=== PATIENT | female | born 1990 | race American Indian/Alaskan Native ===

== ENCOUNTER 2018-02-13 06:18 | Inpatient (IN) | payer OTHER ==
[2018-02-13] MEDS ORDERED: NACL 0.9% 1000 ML 1,000 ML IV ONE ×2 (06:30→07:59)
[2018-02-13 06:55] LABS: Basophils # (Auto) 0.1 K/mm3 (0.0-0.1); Basophils % (Auto) 1.3 % (0.0-1.8); Eosinophils % (Auto) 0.2 % (0.0-4.3); Hematocrit 38.4 % (30.3-42.9); Hemoglobin 13.3 gm/dl (10.1-14.3); Lymphocytes % (Auto) 32.5 % (13.4-35.0); Mean Corpuscular HGB Conc 35 % (30-34); Mean Corpuscular Hemoglobin 32 pg (28-32); Mean Corpuscular Volume 92 fl (79-97); Monocytes # (Auto) 0.7 K/mm3 (0.0-0.8); Platelet Count 315 K/mm3 (140-440); Red Blood Count 4.16 M/mm3 (3.65-5.03); Red Cell Distribution Width 12.5 % (13.2-15.2)
[2018-02-13 07:07] LABS: Alanine Aminotransferase 86 units/L (7-56); Albumin 4.3 g/dL (3.9-5); BUN/Creatinine Ratio 24; Blood Urea Nitrogen 19 mg/dL (7-17); Calcium 9.1 mg/dL (8.4-10.2); Hemolysis Index 19; Lipase 31 units/L (13-60)
[2018-02-13] MEDS ORDERED: ZOFRAN IV ONE (07:59)
--- NOTE | 2018-02-13 07:59 | Emergency Department Report ---
ED Abdominal Pain HPI - General Chief Complaint: Nausea/Vomiting/Diarrhea Stated Complaint: N/V; SEEN TODAY FOR SAME Time Seen by Provider: 02/13/18 07:55 Source: patient Mode of arrival: Ambulatory Limitations: No Limitations - History of Present Illness Initial Comments: Patient is 27-year-old female presents emergency room for nausea vomiting, abdominal pain, and chest pain. Patient has been to the ER 3 times with the same complaints over the last few days. Patient states her symptoms have not improved. Patient states that she is taking the medications as directed and still unable to hold any foods or liquids down. Patient states she's had any by mouth intake for at least 4 days. Patient states her chest pain is a 7 out of 10 and is better with rest and worse with movement and vomiting. Patient states she has upper abdominal pain that is a 6 out of 10. Patient states her abdominal pain is better with rest and worse with vomiting and movement. Patient denies fever and chills. Patient denies diarrhea. MD Complaint: abdominal pain -: Sudden Location: LUQ, RUQ, epigastric Radiation: none Migration to: no migration Severity scale (0 -10): 6 Quality: stabbing Consistency: constant Improves With: rest Worsens With: vomiting, movement Associated Symptoms: nausea, vomiting. denies: diarrhea, fever, chills, constipation, dysuria, hematemesis, hematochezia, melena, hematuria, anorexia, syncope - Related Data LMP (females 10-50): this week Previous Rx's Medication Instructions Recorded Last Taken Type Dicyclomine [Bentyl] 40 mg PO QID 3 Days #12 tablet 02/09/18 Unknown Rx Famotidine [Pepcid] 40 mg PO QDAY 10 Days #10 tablet 02/09/18 Unknown Rx Ondansetron [Zofran ODT TAB] 8 mg PO Q8HR PRN #12 tab.rapdis 02/09/18 Unknown Rx Promethazine [Phenergan] 25 mg NC Q6HR PRN #7 supp.rect 02/11/18 Unknown Rx Allergies Allergy/AdvReac Type Severity Reaction Status Date / Time No Known Allergies Allergy Verified 02/11/18 12:22 ED Review of Systems ROS: Stated complaint: N/V; SEEN TODAY FOR SAME Other details as noted in HPI Constitutional: denies: chills, fever Eyes: denies: eye pain, eye discharge, vision change ENT: denies: ear pain, throat pain Respiratory: denies: cough, shortness of breath, wheezing Cardiovascular: chest pain. denies: palpitations Endocrine: no symptoms reported Gastrointestinal: abdominal pain, nausea, vomiting. denies: diarrhea Genitourinary: denies: urgency, dysuria, discharge Musculoskeletal: denies: back pain, joint swelling, arthralgia Skin: denies: rash, lesions Neurological: denies: headache, weakness, paresthesias Psychiatric: denies: anxiety, depression Hematological/Lymphatic: denies: easy bleeding, easy bruising ED Past Medical Hx - Past Medical History Previous Medical History?: No - Surgical History Past Surgical History?: No - Family History Family history: no significant - Social History Smoking Status: Never Smoker Substance Use Type: Marijuana - Medications Home Medications: Home Medications Medication Instructions Recorded Confirmed Last Taken Type Dicyclomine [Bentyl] 40 mg PO QID 3 Days #12 tablet 02/09/18 02/13/18 Unknown Rx Famotidine [Pepcid] 40 mg PO QDAY 10 Days #10 tablet 02/09/18 02/13/18 Unknown Rx Ondansetron [Zofran ODT TAB] 8 mg PO Q8HR PRN #12 tab.rapdis 02/09/18 02/13/18 Unknown Rx Promethazine [Phenergan] 25 mg NC Q6HR PRN #7 supp.rect 02/11/18 02/13/18 Unknown Rx ED Physical Exam - General Limitations: No Limitations General appearance: alert, in no apparent distress - Head Head exam: Present: atraumatic, normocephalic - Eye Eye exam: Present: normal appearance - ENT ENT exam: Present: mucous membranes dry - Neck Neck exam: Present: normal inspection - Respiratory Respiratory exam: Present: normal lung sounds bilaterally. Absent: respiratory distress - Cardiovascular Cardiovascular Exam: Present: regular rate, normal rhythm. Absent: systolic murmur, diastolic murmur, rubs, gallop - GI/Abdominal GI/Abdominal exam: Present: soft, tenderness (epigastric and right upper quadrant tenderness to palpation), normal bowel sounds - Extremities Exam Extremities exam: Present: normal inspection - Back Exam Back exam: Present: normal inspection - Neurological Exam Neurological exam: Present: alert, oriented X3 - Psychiatric Psychiatric exam: Present: normal affect, normal mood - Skin Skin exam: Present: warm, dry, intact, normal color. Absent: rash ED Course Vital Signs 02/13/18 02/13/18 06:22 10:19 Temperature 98.1 F Pulse Rate 60 Respiratory 16 20 Rate Blood Pressure 118/76 O2 Sat by Pulse 100 100 Oximetry - Reevaluation(s) Reevaluation #1: Discussed all results with patient. Discussed plan of care and admission with patient. Patient agrees with plan of care and admission. Patient to be admitted to the hospitalist service. 02/13/18 09:12 - Consultations Consultation #1: Hospitalist consulted for admission. Hospitalist to admit patient. Bridge orders placed 02/13/18 09:43 ED Medical Decision Making - Lab Data Result diagrams: 02/13/18 06:48 02/13/18 06:48 - EKG Data -: EKG Interpreted by [facility] EKG shows normal: sinus rhythm, axis, intervals, QRS complexes, ST-T waves Rate: bradycardia - Radiology Data Radiology results: report reviewed CT ABDOMEN AND PELVIS WITH CONTRAST INDICATION: Abdominal pain, nausea, vomiting. COMPARISON: None similar at this institution. FINDINGS: Abdomen and pelvis CT performed following intravenous administration of 100 cc of Omnipaque 300. LUNG BASES: Slight nonspecific distal esophageal prominence/thickening. ABDOMEN: Left hepatic lobe tip wraps around the spleen in the left upper quadrant. Right hepatic lobe approximately 16 cm in midclavicular length. Otherwise unremarkable liver, spleen, gallbladder, pancreas, adrenals, aorta, IVC and kidneys. No ascites or size significant adenopathy. Nonopacified GI tract evaluation limited, though grossly nonobstructive. Distal antrum/pylorus exaggerated wall thickness as on axial series 2, images 67-80 nonspecific as suboptimally distended. Normal appendix noted as draping over the right external iliac artery. Mild ascending colon stool. Umbilical ornament creates streak artifact. PELVIS: Urinary bladder and the rectosigmoid within normal limits as also the imaged uterus and adnexa/ovaries. Small simple attenuation pelvic free fluid, most likely physiologic. Tampon incidentally noted. No size significant adenopathy. Innumerable bilateral gluteal subcutaneous nodular densities, likely injection granulomas. Unremarkable bones. CONCLUSION: No acute significant CT abnormality with various incidental findings as in the upper abdomen, including distal gastric exaggerated wall thickness nonspecific in light of provided history, as detailed above. Please correlate. Thank you for the opportunity to participate in this patient's care. Transcribed By: RS Dictated By: DIEGO BISHOP MD Electronically Authenticated By: DIEGO BISHOP MD Signed Date/Time: 02/13/18 0928 - Medical Decision Making Patient is a 27-year-old female presents emergency room for her third ER visit for nausea vomiting chest pain. Patient dystonic had an abdominal CT labs done. - Differential Diagnosis intract n/v. abd pain. jessy. gastritis. Gastroenteritis Critical Care Time: Yes Critical care attestation.: If time is entered above; I have spent that time in minutes in the direct care of this critically ill patient, excluding procedure time. Critical Care Time: 40 minutes. ED Disposition Clinical Impression: Hypokalemia, Abnormal LFTs, Dehydration Intractable nausea and vomiting Qualifiers: Vomiting type: unspecified Qualified Code(s): R11.2 - Nausea with vomiting, unspecified Abdominal pain Qualifiers: Abdominal location: upper abdomen, unspecified Qualified Code(s): R10.10 - Upper abdominal pain, unspecified Gastritis Qualifiers: Gastritis type: unspecified gastritis Chronicity: acute Gastritis bleeding: without bleeding Qualified Code(s): K29.00 - Acute gastritis without bleeding Chest pain Qualifiers: Chest pain type: unspecified Qualified Code(s): R07.9 - Chest pain, unspecified Nausea & vomiting Qualifiers: Vomiting type: unspecified Vomiting Intractability: intractable Qualified Code(s): R11.2 - Nausea with vomiting, unspecified Disposition: DC-09 OP ADMIT IP TO THIS HOSP Is pt being admited?: Yes Does the pt Need Aspirin: No Condition: Serious Time of Disposition: 09:41
--- NOTE | 2018-02-13 09:32 | Cat Scan Report ---
CT ABDOMEN AND PELVIS WITH CONTRAST INDICATION: Abdominal pain, nausea, vomiting. COMPARISON: None similar at this institution. FINDINGS: Abdomen and pelvis CT performed following intravenous administration of 100 cc of Omnipaque 300. LUNG BASES: Slight nonspecific distal esophageal prominence/thickening. ABDOMEN: Left hepatic lobe tip wraps around the spleen in the left upper quadrant. Right hepatic lobe approximately 16 cm in midclavicular length. Otherwise unremarkable liver, spleen, gallbladder, pancreas, adrenals, aorta, IVC and kidneys. No ascites or size significant adenopathy. Nonopacified GI tract evaluation limited, though grossly nonobstructive. Distal antrum/pylorus exaggerated wall thickness as on axial series 2, images 67-80 nonspecific as suboptimally distended. Normal appendix noted as draping over the right external iliac artery. Mild ascending colon stool. Umbilical ornament creates streak artifact. PELVIS: Urinary bladder and the rectosigmoid within normal limits as also the imaged uterus and adnexa/ovaries. Small simple attenuation pelvic free fluid, most likely physiologic. Tampon incidentally noted. No size significant adenopathy. Innumerable bilateral gluteal subcutaneous nodular densities, likely injection granulomas. Unremarkable bones. CONCLUSION: No acute significant CT abnormality with various incidental findings as in the upper abdomen, including distal gastric exaggerated wall thickness nonspecific in light of provided history, as detailed above. Please correlate. Thank you for the opportunity to participate in this patient's care.
[2018-02-13] MEDS ORDERED: NACL 0.9% 1000 ML 1,000 ML ONE (10:40)
[2018-02-13 11:17] LABS: Bilirubin,Urine NEG (Negative); Blood,Urine MOD (Negative); Color,Urine Yellow (Yellow); HCG Qualitative,Urine Negative (Negative); Mucus,Urine 3+ /HPF; Protein,Urine <15 mg/dL mg/dL (Negative)
--- NOTE | 2018-02-13 11:43 | History and Physical Report ---
History of Present Illness Date of examination: 02/13/18 Date of admission: 02/13/18 09:42 Chief complaint: Intractable nausea and vomiting History of present illness: This is a 27-year-old female presents with chief complaint of nausea or vomiting since Sunday morning. Patient reports that she's had approximately 5-6 episodes every 2 hours since then. Patient does report having had 2 shots of Aubrie the prior night. However, denies any history of binge drinking. She does report occasional alcohol use. Also, patient reports that she smokes approximately 3-4 blunts of marijuana daily. Patient reports that her vomitus was of gastric contents and occasional bilious vomiting. Patient also reports daily reflux. However, patient does not take any medications. Patient reports chest pain but ascribes it as a sensation of reflux. The patient has had 3 ER visits since 02/09/18. Patient has been treated with Zofran and Bentyl with no relief. She denies any shortness of breath. No headache or visual disturbances. No diaphoresis. Past History Past Medical History: No medical history Past Surgical History: No surgical history Social history: alcohol abuse, other (marijuana use/4 blunts daily) Medications and Allergies Allergies Allergy/AdvReac Type Severity Reaction Status Date / Time No Known Allergies Allergy Verified 02/11/18 12:22 Home Medications Medication Instructions Recorded Confirmed Last Taken Type Dicyclomine [Bentyl] 40 mg PO QID 3 Days #12 tablet 02/09/18 02/13/18 Unknown Rx Famotidine [Pepcid] 40 mg PO QDAY 10 Days #10 tablet 02/09/18 02/13/18 Unknown Rx Ondansetron [Zofran ODT TAB] 8 mg PO Q8HR PRN #12 tab.rapdis 02/09/18 02/13/18 Unknown Rx Promethazine [Phenergan] 25 mg [place] Q6HR PRN #7 supp.rect 02/11/18 02/13/18 Unknown Rx Review of Systems All systems: negative Exam - Constitutional Vitals: Temp Pulse Resp BP Pulse Ox 98.1 F 60 20 118/76 100 02/13/18 06:22 02/13/18 06:22 02/13/18 10:19 02/13/18 06:22 02/13/18 10:19 General appearance: Present: no acute distress, well-nourished - EENT Eyes: Present: PERRL ENT: hearing intact, clear oral mucosa - Neck Neck: Present: supple, normal ROM - Respiratory Respiratory effort: normal Respiratory: bilateral: CTA - Cardiovascular Heart Sounds: Present: S1 & S2. Absent: rub, click - Extremities Extremities: pulses symmetrical, No edema Peripheral Pulses: within normal limits - Abdominal General gastrointestinal: Present: soft, non-tender, non-distended, normal bowel sounds Female genitourinary: Present: normal - Integumentary Integumentary: Present: clear, warm, dry - Musculoskeletal Musculoskeletal: gait normal, strength equal bilaterally - Psychiatric Psychiatric: appropriate mood/affect, intact judgment & insight - Neurologic Neurologic: CNII-XII intact, moves all extremities Results - Labs CBC & Chem 7: 02/13/18 06:48 02/13/18 06:48 Labs: Laboratory Last Values WBC 9.1 K/mm3 (4.5-11.0) 02/13/18 06:48 RBC 4.16 M/mm3 (3.65-5.03) 02/13/18 06:48 Hgb 13.3 gm/dl (10.1-14.3) 02/13/18 06:48 Hct 38.4 % (30.3-42.9) 02/13/18 06:48 MCV 92 fl (79-97) 02/13/18 06:48 MCH 32 pg (28-32) 02/13/18 06:48 MCHC 35 % (30-34) H 02/13/18 06:48 RDW 12.5 % (13.2-15.2) L 02/13/18 06:48 Plt Count 315 K/mm3 (140-440) 02/13/18 06:48 Lymph % (Auto) 32.5 % (13.4-35.0) 02/13/18 06:48 [place] % (Auto) 8.0 % (0.0-7.3) H 02/13/18 06:48 Eos % (Auto) 0.2 % (0.0-4.3) 02/13/18 06:48 Baso % (Auto) 1.3 % (0.0-1.8) 02/13/18 06:48 Lymph # 3.0 K/mm3 (1.2-5.4) 02/13/18 06:48 [place] # 0.7 K/mm3 (0.0-0.8) 02/13/18 06:48 Eos # 0.0 K/mm3 (0.0-0.4) 02/13/18 06:48 Baso # 0.1 K/mm3 (0.0-0.1) 02/13/18 06:48 Seg Neutrophils % 58.0 % (40.0-70.0) 02/13/18 06:48 Seg Neutrophils # 5.3 K/mm3 (1.8-7.7) 02/13/18 06:48 Sodium 137 mmol/L (137-145) 02/13/18 06:48 Potassium 3.1 mmol/L (3.6-5.0) L 02/13/18 06:48 Chloride 99.0 mmol/L (98-107) 02/13/18 06:48 Carbon Dioxide 21 mmol/L (22-30) L 02/13/18 06:48 Anion Gap 20 mmol/L 02/13/18 06:48 BUN 19 mg/dL (7-17) H 02/13/18 06:48 Creatinine 0.8 mg/dL (0.7-1.2) 02/13/18 06:48 Estimated GFR > 60 ml/min 02/13/18 06:48 BUN/Creatinine Ratio 24 % 02/13/18 06:48 Glucose 91 mg/dL (65-100) 02/13/18 06:48 Calcium 9.1 mg/dL (8.4-10.2) 02/13/18 06:48 Total Bilirubin 1.40 mg/dL (0.1-1.2) H 02/13/18 06:48 AST 81 units/L (5-40) H 02/13/18 06:48 ALT 86 units/L (7-56) H 02/13/18 06:48 Alkaline Phosphatase 58 units/L (35-129) 02/13/18 06:48 Troponin T < 0.010 ng/mL (0.00-0.029) 02/13/18 06:48 Total Protein 6.8 g/dL (6.3-8.2) 02/13/18 06:48 Albumin 4.3 g/dL (3.9-5) 02/13/18 06:48 Albumin/Globulin Ratio 1.7 % 02/13/18 06:48 Lipase 31 units/L (13-60) 02/13/18 06:48 HCG, Qual Negative (Negative) 02/13/18 06:43 Urine Color Yellow (Yellow) 02/13/18 11:00 Urine Turbidity Clear (Clear) 02/13/18 11:00 Urine pH 6.0 (5.0-7.0) 02/13/18 11:00 Ur Specific [place] 1.060 (1.003-1.030) H 02/13/18 11:00 Urine Protein <15 mg/dl mg/dL (Negative) 02/13/18 11:00 Urine Glucose (UA) Neg mg/dL (Negative) 02/13/18 11:00 Urine Ketones 80 mg/dL (Negative) 02/13/18 11:00 Urine Blood Mod (Negative) 02/13/18 11:00 Urine Nitrite Neg (Negative) 02/13/18 11:00 Urine Bilirubin Neg (Negative) 02/13/18 11:00 Urine Urobilinogen 4.0 mg/dL (<2.0) 02/13/18 11:00 Ur Leukocyte Esterase Neg (Negative) 02/13/18 11:00 Urine WBC (Auto) 4.0 /HPF (0.0-6.0) 02/13/18 11:00 Urine RBC (Auto) 6.0 /HPF (0.0-6.0) 02/13/18 11:00 U Epithel Cells (Auto) < 1.0 /HPF (0-13.0) 02/13/18 11:00 Urine Mucus 3+ /HPF 02/13/18 11:00 Urine HCG, Qual Negative (Negative) 02/13/18 11:00 Assessment and Plan Assessment and plan: Abdominal pain. CT scan of the abdomen and pelvis reveals distal antrum/pylorus with exaggerated wall thickness. GI consultation. Patient may need upper endoscopy given this abnormality. Intractable nausea and vomiting. Lipase is negative. Etiology likely secondary to cannabis hyperemesis syndrome +/- alcoholic gastritis and GERD. GI consultation pending. Continue Zofran. Probable GERD. Start Protonix daily.
[2018-02-13] MEDS ORDERED: SODIUM CHLORIDE FLUSH SYRINGE 10 ML IV PRN (11:52)
[2018-02-13] MEDS ORDERED: TYLENOL PO PRN (11:52)
[2018-02-13] MEDS: NACL 0.9% 1000 ML 1,000 ML IV SCH (13:19)
[2018-02-13] MEDS: PROTONIX IV SCH ×2 (13:21→21:07)
[2018-02-13] MEDS: REGLAN IV PRN ×2 (16:26→23:50)
[2018-02-13] MEDS: MORPHINE IV PRN (21:06)
[2018-02-13] MEDS: SODIUM CHLORIDE FLUSH SYRINGE 10 ML IV SCH (21:07)
[2018-02-13] MEDS: ZOFRAN IV PRN (21:17)
[2018-02-14] MEDS ORDERED: K-DUR PO ONE (00:23)
[2018-02-14] MEDS ORDERED: NITROSTAT SL ONE (00:26)
--- NOTE | 2018-02-14 00:41 | Consultation ---
REFERRING PHYSICIAN: Shailesh Briggs MD INDICATION: Abdominal pain. HISTORY OF PRESENT ILLNESS: The patient is a 27-year-old black female who is being seen for upper GI symptoms. The patient reports that the symptoms started over this past weekend. The patient reports that she had a couple of shots of fenny and she was smoking some marijuana. The patient reports she started having [id number] abdominal pain, radiating to the epigastric area. She reports some nausea without vomiting. The patient reports only occasional NSAID use with Goody powders or BC powder. She reports no melena or hematemesis. Denies any other specific symptoms. The patient subsequently came to the Emergency Room where a CT scan raised the possibility of antral/pyloric area-related inflammation and GI is consulted in management. The patient denies any other specific complaints. PAST MEDICAL HISTORY: Negative. ALLERGIES: No known drug allergies. MEDICATIONS: Seen and chart reviewed and updated. SOCIAL HISTORY: Positive alcohol, positive marijuana. FAMILY HISTORY: Negative for colon cancer, IBD, or liver disease. REVIEW OF SYSTEMS: GENERAL: Reports mild weakness. HEENT: No visual complaints or tinnitus. PULMONARY: No shortness of breath. No cough. No chest pain. GASTROINTESTINAL: Reports abdominal pain with nausea. All points of 13-point review of systems otherwise negative. PHYSICAL EXAMINATION: VITAL SIGNS: Temperature of 98.5, pulse 60, respirations 20, blood pressure 140/58. GENERAL: Fairly nourished female, in mild distress. HEENT: Pupils are round and reactive. PULMONARY: Clear to auscultation bilaterally. CARDIOVASCULAR: Regular rhythm. Normal S1 and S2. ABDOMEN: Positive bowel sounds, soft. SKIN: No obvious rashes. LABORATORY DATA: Labs pertinent for white count of 9.1, hemoglobin and hematocrit 13.3 and 38.4, platelet count 315. Chem-7 is pertinent only for a potassium of 3.1. LFTs within normal limits. RADIOLOGY: CT scan showed inflammation, noted mainly in the distal gastric area. ASSESSMENT AND PLAN: The patient is a 27-year-old female who presents with now 4 days' abdominal pain after having some alcohol and some marijuana. The CT scan is raising possibility of gastritis, possibility of peptic ulcer disease with upper GI pathology. PLAN: 1. PPI IV b.i.d. 2. Avoid NSAIDs and aspirin. 3. Pain and antiemetic management per primary team. 4. We will plan for EGD in a.m. with further recommendation based on above. JOB# [id number] CAB/NTS
[2018-02-14] MEDS: NACL 0.9% 1000 ML 1,000 ML IV SCH ×2 (01:00→18:54)
[2018-02-14 02:27] LABS: Creatine Kinase MB 1.3 ng/mL (0.0-4.0)
[2018-02-14 04:23] LABS: Basophils % (Auto) 0.2 % (0.0-1.8); Eosinophils % (Auto) 0.1 % (0.0-4.3); Hematocrit 35.5 % (30.3-42.9); Hemoglobin 12.1 gm/dl (10.1-14.3); Lymphocytes # (Auto) 2.6 K/mm3 (1.2-5.4); Lymphocytes % (Auto) 31.8 % (13.4-35.0); Mean Corpuscular HGB Conc 34 % (30-34); Mean Corpuscular Hemoglobin 32 pg (28-32); Mean Corpuscular Volume 94 fl (79-97); Monocytes # (Auto) 0.8 K/mm3 (0.0-0.8); Monocytes % (Auto) 10.2 % (0.0-7.3); Platelet Count 242 K/mm3 (140-440); Red Blood Count 3.79 M/mm3 (3.65-5.03); Red Cell Distribution Width 12.5 % (13.2-15.2)
[2018-02-14 07:47] LABS: Creatine Kinase MB 1.3 ng/mL (0.0-4.0)
[2018-02-14 08:21] LABS: BUN/Creatinine Ratio 17; Blood Urea Nitrogen 12 mg/dL (7-17); Calcium 8.2 mg/dL (8.4-10.2); Hemolysis Index 14
[2018-02-14] MEDS: PROTONIX IV SCH ×2 (10:07→21:17)
[2018-02-14] MEDS: LOVENOX SUB-Q SCH (10:07)
[2018-02-14] MEDS: SODIUM CHLORIDE FLUSH SYRINGE 10 ML IV SCH ×2 (10:09→22:34)
--- NOTE | 2018-02-14 11:07 | Progress Note ---
Assessment and Plan Assessment and plan: Abdominal pain. CT scan of the abdomen and pelvis reveals distal antrum/pylorus with exaggerated wall thickness. GI consultation. Patient for upper endoscopy given this abnormality. Intractable nausea and vomiting. Lipase is negative. Etiology likely secondary to cannabis hyperemesis syndrome +/- alcoholic gastritis and GERD. GI consultation pending. Continue Zofran. Probable GERD. Start Protonix daily. Disposition. Anticipate discharge in a.m. History Interval history: No new issues overnight. Hospitalist Physical - Constitutional Vitals: Temp Pulse Resp BP Pulse Ox 98.2 F 67 18 122/69 98 02/14/18 04:35 02/14/18 04:35 02/14/18 04:35 02/14/18 04:35 02/14/18 04:35 General appearance: Present: no acute distress, well-nourished - EENT Eyes: Present: PERRL, EOM intact ENT: hearing intact, clear oral mucosa, dentition normal - Neck Neck: Present: supple, normal ROM - Respiratory Respiratory effort: normal Respiratory: bilateral: CTA - Cardiovascular Rhythm: regular Heart Sounds: Present: S1 & S2. Absent: gallop, rub - Extremities Extremities: no ischemia, No edema, Full ROM - Abdominal General gastrointestinal: soft, non-tender, non-distended, normal bowel sounds - Integumentary Integumentary: Present: clear, warm, dry - Neurologic Neurologic: CNII-XII intact, moves all extremities Results - Labs CBC & Chem 7: 02/14/18 04:06 02/14/18 06:33 Labs: Laboratory Last Values WBC 8.0 K/mm3 (4.5-11.0) 02/14/18 04:06 RBC 3.79 M/mm3 (3.65-5.03) 02/14/18 04:06 Hgb 12.1 gm/dl (10.1-14.3) 02/14/18 04:06 Hct 35.5 % (30.3-42.9) 02/14/18 04:06 MCV 94 fl (79-97) 02/14/18 04:06 MCH 32 pg (28-32) 02/14/18 04:06 MCHC 34 % (30-34) 02/14/18 04:06 RDW 12.5 % (13.2-15.2) L 02/14/18 04:06 Plt Count 242 K/mm3 (140-440) 02/14/18 04:06 Lymph % (Auto) 31.8 % (13.4-35.0) 02/14/18 04:06 [place] % (Auto) 10.2 % (0.0-7.3) H 02/14/18 04:06 Eos % (Auto) 0.1 % (0.0-4.3) 02/14/18 04:06 Baso % (Auto) 0.2 % (0.0-1.8) 02/14/18 04:06 Lymph # 2.6 K/mm3 (1.2-5.4) 02/14/18 04:06 [place] # 0.8 K/mm3 (0.0-0.8) 02/14/18 04:06 Eos # 0.0 K/mm3 (0.0-0.4) 02/14/18 04:06 Baso # 0.0 K/mm3 (0.0-0.1) 02/14/18 04:06 Seg Neutrophils % 57.7 % (40.0-70.0) 02/14/18 04:06 Seg Neutrophils # 4.6 K/mm3 (1.8-7.7) 02/14/18 04:06 Sodium 140 mmol/L (137-145) 02/14/18 06:33 Potassium 3.3 mmol/L (3.6-5.0) L 02/14/18 06:33 Chloride 101.8 mmol/L (98-107) 02/14/18 06:33 Carbon Dioxide 22 mmol/L (22-30) 02/14/18 06:33 Anion Gap 20 mmol/L 02/14/18 06:33 BUN 12 mg/dL (7-17) 02/14/18 06:33 Creatinine 0.7 mg/dL (0.7-1.2) 02/14/18 06:33 Estimated GFR > 60 ml/min 02/14/18 06:33 BUN/Creatinine Ratio 17 % 02/14/18 06:33 Glucose 78 mg/dL (65-100) 02/14/18 06:33 Calcium 8.2 mg/dL (8.4-10.2) L 02/14/18 06:33 Total Bilirubin 1.40 mg/dL (0.1-1.2) H 02/13/18 06:48 AST 81 units/L (5-40) H 02/13/18 06:48 ALT 86 units/L (7-56) H 02/13/18 06:48 Alkaline Phosphatase 58 units/L (35-129) 02/13/18 06:48 Total Creatine Kinase 255 units/L (30-135) H 02/14/18 06:33 CK-MB (CK-2) 1.3 ng/mL (0.0-4.0) 02/14/18 06:33 CK-MB (CK-2) Rel Index 0.5 (0-4) 02/14/18 06:33 Troponin T < 0.010 ng/mL (0.00-0.029) 02/14/18 06:33 Total Protein 6.8 g/dL (6.3-8.2) 02/13/18 06:48 Albumin 4.3 g/dL (3.9-5) 02/13/18 06:48 Albumin/Globulin Ratio 1.7 % 02/13/18 06:48 Lipase 31 units/L (13-60) 02/13/18 06:48 HCG, Qual Negative (Negative) 02/13/18 06:43 Urine Color Yellow (Yellow) 02/13/18 11:00 Urine Turbidity Clear (Clear) 02/13/18 11:00 Urine pH 6.0 (5.0-7.0) 02/13/18 11:00 Ur Specific [place] 1.060 (1.003-1.030) H 02/13/18 11:00 Urine Protein <15 mg/dl mg/dL (Negative) 02/13/18 11:00 Urine Glucose (UA) Neg mg/dL (Negative) 02/13/18 11:00 Urine Ketones 80 mg/dL (Negative) 02/13/18 11:00 Urine Blood Mod (Negative) 02/13/18 11:00 Urine Nitrite Neg (Negative) 02/13/18 11:00 Urine Bilirubin Neg (Negative) 02/13/18 11:00 Urine Urobilinogen 4.0 mg/dL (<2.0) 02/13/18 11:00 Ur Leukocyte Esterase Neg (Negative) 02/13/18 11:00 Urine WBC (Auto) 4.0 /HPF (0.0-6.0) 02/13/18 11:00 Urine RBC (Auto) 6.0 /HPF (0.0-6.0) 02/13/18 11:00 U Epithel Cells (Auto) < 1.0 /HPF (0-13.0) 02/13/18 11:00 Urine Mucus 3+ /HPF 02/13/18 11:00 Urine HCG, Qual Negative (Negative) 02/13/18 11:00
[2018-02-14] MEDS ORDERED: WATER FOR IRRIG STERILE IR ONE (13:08)
[2018-02-14] MEDS ORDERED: NACL 0.9% 1000 ML 1,000 ML ONE (13:09)
--- NOTE | 2018-02-14 13:18 | Anesthesia Consultation ---
Anesthesia Consult and Med Hx Date of service: 02/14/18 - Airway Anesthetic Teeth Evaluation: Poor (chipped upper right teeth) ROM Head & Neck: Adequate Mental/Hyoid Distance: Adequate Mallampati Class: Class II Intubation Access Assessment: Probably Good - Pre-Operative Health Status ASA Pre-Surgery Classification: ASA2 Proposed Anesthetic Plan: MAC - Pulmonary Hx Smoking: Yes - Gastrointestinal Hx Ulcer: No (N/V) Hx Gastroesophageal Reflux Disease: Yes - Other Systems Hx Alcohol Use: Yes (abuse) Hx Substance Use: Yes (marijuana x 4/day)
--- NOTE | 2018-02-14 13:19 | Anesthesia Day of Surgery ---
Anesthesia Day of Surgery - Day of Surgery Patient Examined: Yes Patient H&P Reviewed: Yes Patient is NPO: Yes
[2018-02-14] MEDS ORDERED: DIPRIVAN 10 MG/ML IV ONE ×2 (13:22→13:32)
--- NOTE | 2018-02-14 13:35 | Post Operative Note ---
Pre-op diagnosis: abdominal pain Post-op diagnosis: same Findings: EGD: medium hiatal hernia - mild gastritis - negative Procedure: EGD Anesthesia: MAC Surgeon: PATRICIA GOMEZ Estimated blood loss: none Pathology: list Specimen disposition: to lab Condition: stable Disposition: floor
--- NOTE | 2018-02-14 14:10 | Operative Report ---
PROCEDURE: EGD. INDICATION: 1. Upper abdominal pain. 2. Abnormal CT scan. MEDICATIONS: Propofol per COMPUTING SERVICES DIRECTOR. COMPLICATIONS: None. DESCRIPTION OF PROCEDURE: The patient brought to procedure suite. The patient had the procedure discussed with her at length. All risks, complications, and benefits were discussed after which the patient signed for the procedure to be performed. DESCRIPTION OF PROCEDURE: The patient was placed in left lateral decubitus position. Mouth block was placed in the patient's oral cavity. After adequate sedation with medication as above, endoscope was placed in the mouth and brought to the level of second portion of duodenum. Retroflexion view was performed. The patient's vital signs remained stable throughout the procedure. FINDINGS: There was noted to be a medium hiatal hernia in GE junction at 30 cm from the gums. The esophagus otherwise appeared to be normal. Mild gastritis noted in the stomach. The stomach otherwise appeared to be normal. The duodenum appeared to be normal. Retroflexion view performed in the stomach showed no other pathology other than noted above. The patient tolerated the procedure well. No complications during the procedure. IMPRESSION: 1. Hiatal hernia. 2. Mild gastritis. 3. Otherwise, normal esophagogastroduodenoscopy. RECOMMENDATIONS: 1. PPI daily. 2. Advance diet. 3. Okay to discharge from GI standpoint. JOB# [id number] CAB/NTS
[2018-02-14] MEDS ORDERED: ZOFRAN ONE (14:14)
[2018-02-14] MEDS: ZOFRAN IV PRN ×2 (14:15→22:33)
[2018-02-14] MEDS: MORPHINE IV PRN ×2 (18:55→21:17)
[2018-02-14] MEDS ORDERED: BENADRYL PO ONE (21:07)
[2018-02-14] MEDS: REGLAN IV PRN (21:17)
[2018-02-14] MEDS ORDERED: BENADRYL IV ONE (21:59)
[2018-02-15] MEDS: MORPHINE IV PRN (04:40)
[2018-02-15 07:20] VITALS: BP 125/63
--- NOTE | 2018-02-15 09:46 | Discharge Summary ---
Providers - Providers Date of Admission: 02/13/18 09:42 Date of discharge: 02/15/18 Attending physician: BRAIN MCKEON 02/13/18 11:52 Consult to Physician [CONS] Routine Comment: CONSULT COMLETED Consulting Provider: DUKE GRAY Physician Instructions: Reason For Exam: intractable N/V and gastric wall thickening Primary care physician: LIVING SUPERVISOR Hospitalization Reason for admission: n/v Condition: Serious Hospital course: This is a 27-year-old female presents with chief complaint of nausea or vomiting since Sunday morning. Patient reports that she's had approximately 5-6 episodes every 2 hours since then. Patient does report having had 2 shots of Aubrie the prior night. However, denies any history of binge drinking. She does report occasional alcohol use. Also, patient reports that she smokes approximately 3-4 blunts of marijuana daily. Patient reports that her vomitus was of gastric contents and occasional bilious vomiting. Patient also reports daily reflux. However, patient does not take any medications. Patient reports chest pain but ascribes it as a sensation of reflux. The patient has had 3 ER visits since 02/09/18. Patient has been treated with Zofran and Bentyl with no relief. The patient was admitted with diagnosis of intractable nausea and vomiting. CT scan of the abdomen and pelvis reveals distal antrum/pylorus with exaggerated wall thickness. Therefore, GI was consulted and performed EGD. EGD revealed mild gastritis and medium hiatal hernia. Etiology of nausea and vomiting likely secondary to cannabis hyperemesis syndrome +/- alcoholic gastritis and GERD. The patient was felt to have received maximal hospital benefit and will discharge home. Dedicated discharge time 32 minutes. Disposition: TO HOME OR SELFCARE Time spent for discharge: 32 - Discharge Diagnoses (1) Cannabinoid hyperemesis syndrome Status: Acute (2) Abdominal pain Status: Acute Qualifiers: Abdominal location: upper abdomen, unspecified Qualified Code(s): R10.10 - Upper abdominal pain, unspecified (3) Gastritis Status: Acute Qualifiers: Gastritis type: unspecified gastritis Chronicity: acute Gastritis bleeding: without bleeding Qualified Code(s): K29.00 - Acute gastritis without bleeding (4) Hypokalemia Status: Acute (5) Intractable nausea and vomiting Status: Acute Qualifiers: Vomiting type: unspecified Qualified Code(s): R11.2 - Nausea with vomiting, unspecified (6) Alcoholic gastritis without hemorrhage Status: Acute Qualifiers: Chronicity: acute Qualified Code(s): K29.20 - Alcoholic gastritis without bleeding Core Measure Documentation - Palliative Care Palliative Care/ Comfort Measures: Not Applicable - Core Measures Any of the following diagnoses?: none Exam - Constitutional Vitals: Temp Pulse Resp BP Pulse Ox 98.3 F 74 18 125/63 98 02/15/18 05:08 02/15/18 05:08 02/15/18 05:08 02/15/18 05:08 02/15/18 05:08 General appearance: Present: no acute distress, well-nourished - EENT Eyes: Present: PERRL ENT: hearing intact, clear oral mucosa - Neck Neck: Present: supple, normal ROM - Respiratory Respiratory effort: normal Respiratory: bilateral: CTA - Cardiovascular Heart Sounds: Present: S1 & S2. Absent: rub, click - Extremities Extremities: pulses symmetrical, No edema Peripheral Pulses: within normal limits - Abdominal General gastrointestinal: Present: soft, non-tender, non-distended, normal bowel sounds Female genitourinary: Present: normal - Integumentary Integumentary: Present: clear, warm, dry - Musculoskeletal Musculoskeletal: gait normal, strength equal bilaterally - Psychiatric Psychiatric: appropriate mood/affect, intact judgment & insight - Neurologic Neurologic: CNII-XII intact, moves all extremities Plan Activity: no restrictions Weight Bearing Status: Full Weight Bearing Diet: regular Follow up with: PRIMARY CARE,MD [Primary Care Provider] - 3-5 Days Prescriptions: Dicyclomine [Bentyl] 40 mg PO QID 3 Days #12 tablet Ondansetron [Zofran ODT TAB] 8 mg PO Q8HR PRN #12 tab.rapdis PRN Reason: Nausea And Vomiting Pantoprazole [Protonix] 40 mg PO QDAY #30 tablet Promethazine [Phenergan SUPPOS] 25 mg AR Q6HR PRN #7 supp.rect PRN Reason: Nausea
[2018-02-15] MEDS: PROTONIX IV SCH (10:11)
[2018-02-15] MEDS: SODIUM CHLORIDE FLUSH SYRINGE 10 ML IV SCH (10:12)
[2018-02-15] MEDS: LOVENOX SUB-Q SCH (10:12)
[2018-02-16] MEDS ORDERED: PROTONIX PO SCH (10:00)
== END 2018-02-15 13:43 | disposition home or self-care (01) | DRG 897 ==
LOC: ED 06:18 → 3A 09:42
PROVIDERS: ADMIT Hospitalist; ATTEND Hospitalist
PROC: 0DJ08ZZ Inspection of Upper Intestinal Tract, Via Natural or Artificial Opening Endoscopic (ICD-10-PCS; principal; 2018-02-14)
DX: F12.188 Cannabis abuse with other cannabis-induced disorder (principal); K29.20 Alcoholic gastritis without bleeding; R07.9 Chest pain, unspecified; E86.0 Dehydration; F17.200 Nicotine dependence, unspecified, uncomplicated; K21.9 Gastro-esophageal reflux disease without esophagitis; K44.9 Diaphragmatic hernia without obstruction or gangrene; J66.2 Cannabinosis; E87.6 Hypokalemia; Z72.89 Other problems related to lifestyle; Z79.899 Other long term (current) drug therapy
CPT/HCPCS: 36415; 74177; 80048; 80053; 81001; 81025; 82550; 82553; 83690; 84484; 84703; 85025; 93005; 93010; 96374; G0378; C9113; J1200; J1650; J2270; J2405; J2704; J2765; J7030; Q9967

== ENCOUNTER 2018-05-26 05:11 | Emergency (ER) | payer OTHER ==
--- NOTE | 2018-05-26 07:12 | Emergency Department Report ---
ED General Adult HPI - General Stated complaint: VOMITING Time Seen by Provider: 05/26/18 07:08 - History of Present Illness Initial comments: 28-year-old female apparently is transported via EMS for recurrent symptoms. She has had an extensive workup in the past which showed gastric mucosal thickening and a hiatal hernia on CT and EGD respectively. She's been diagnosed with cannibinoid hyperemesis. In addition she does drink alcohol. Per her 2018 discharge summary: his is a 27-year-old female presents with chief complaint of nausea or vomiting since Sunday morning. Patient reports that she's had approximately 5-6 episodes every 2 hours since then. Patient does report having had 2 shots of Aubrie the prior night. However, denies any history of binge drinking. She does report occasional alcohol use. Also, patient reports that she smokes approximately 3-4 blunts of marijuana daily. Patient reports that her vomitus was of gastric contents and occasional bilious vomiting. Patient also reports daily reflux. However, patient does not take any medications. Patient reports chest pain but ascribes it as a sensation of reflux. The patient has had 3 ER visits since 02/09/18. Patient has been treated with Zofran and Bentyl with no relief. The patient was admitted with diagnosis of intractable nausea and vomiting. CT scan of the abdomen and pelvis reveals distal antrum/pylorus with exaggerated wall thickness. Therefore, GI was consulted and performed EGD. EGD revealed mild gastritis and medium hiatal hernia. Etiology of nausea and vomiting likely secondary to cannabis hyperemesis syndrome +/- alcoholic g astritis and GERD. The patient was felt to have received maximal hospital benefit and will discharge home. Dedicated discharge time 32 minutes. Disposition: DC- TO HOME OR SELFCARE Time spent for discharge: 32 - Discharge Diagnoses (1) Cannabinoid hyperemesis syndrome Status: Acute (2) Abdominal pain Status: Acute Qualifiers: Abdominal location: upper abdomen, unspecified Qualified Code(s): R10.10 - Upper abdominal pain, unspecified (3) Gastritis Status: Acute Qualifiers: Gastritis type: unspecified gastritis Chronicity: acute Gastritis bleeding: without bleeding Qualified Code(s): K29.00 - Acute gastritis without bleeding (4) Hypokalemia Status: Acute (5) Intractable nausea and vomiting Status: Acute Qualifiers: Vomiting type: unspecified Qualified Code(s): R11.2 - Nausea with vomiting, unspecified (6) Alcoholic gastritis without hemorrhage Status: Acute Qualifiers: Chronicity: acute Qualified Code(s): K29.20 - Alcoholic gastritis without bleeding Patient describes recurrent symptoms similar to her prior visit here. She states she has not followed up with a primary care nor a GI doctor. She complains of epigastric discomfort and cramping which she states she experiences every day. She denies alcohol use this time. She denies marijuana use. She states that she does have chronic problems with abdominal pain. Yesterday she began vomiting. She's had no signs of GI bleeding. -: week(s), month(s) Location: abdomen Quality: aching Consistency: intermittent Improves with: none Worsens with: none Associated Symptoms: nausea/vomiting Treatments Prior to Arrival: none - Related Data Previous Rx's Medication Instructions Recorded Last Taken Type Lansoprazole [Prevacid] 15 mg PO BID #30 cap 05/26/18 Unknown Rx Ondansetron [Zofran Odt] 4 mg PO Q4HR PRN #14 tab.rapdis 05/26/18 Unknown Rx Allergies Allergy/AdvReac Type Severity Reaction Status Date / Time No Known Allergies Allergy Verified 02/11/18 12:22 ED Review of Systems ROS: Stated complaint: VOMITING Other details as noted in HPI Constitutional: denies: chills, fever Eyes: denies: eye pain, eye discharge, vision change ENT: denies: ear pain, throat pain Respiratory: denies: cough, shortness of breath, wheezing Cardiovascular: denies: chest pain, palpitations Endocrine: no symptoms reported Gastrointestinal: abdominal pain, nausea, vomiting. denies: diarrhea Genitourinary: denies: urgency, dysuria, discharge Musculoskeletal: denies: back pain, joint swelling, arthralgia Skin: denies: rash, lesions Neurological: denies: headache, weakness, paresthesias Psychiatric: denies: anxiety, depression Hematological/Lymphatic: denies: easy bleeding, easy bruising ED Past Medical Hx - Past Medical History Additional medical history: Cannabinoid hyperemesis syndrome - Social History Smoking Status: Never Smoker Substance Use Type: Alcohol, Marijuana - Medications Home Medications: Home Medications Medication Instructions Recorded Confirmed Last Taken Type Lansoprazole [Prevacid] 15 mg PO BID #30 cap 05/26/18 Unknown Rx Ondansetron [Zofran Odt] 4 mg PO Q4HR PRN #14 tab.rapdis 05/26/18 Unknown Rx ED Physical Exam - General General appearance: alert, in no apparent distress - Head Head exam: Present: atraumatic, normocephalic - Eye Eye exam: Present: normal appearance - ENT ENT exam: Present: mucous membranes moist - Neck Neck exam: Present: normal inspection - Respiratory Respiratory exam: Present: normal lung sounds bilaterally. Absent: respiratory distress - Cardiovascular Cardiovascular Exam: Present: regular rate, normal rhythm. Absent: systolic murmur, diastolic murmur, rubs, gallop - GI/Abdominal GI/Abdominal exam: Present: soft, normal bowel sounds. Absent: distended, tenderness, guarding, rebound, rigid - Extremities Exam Extremities exam: Present: normal inspection - Back Exam Back exam: Present: normal inspection - Neurological Exam Neurological exam: Present: alert, oriented X3, CN II-XII intact. Absent: motor sensory deficit - Psychiatric Psychiatric exam: Present: normal affect, normal mood - Skin Skin exam: Present: warm, dry, intact, normal color. Absent: rash ED Course Vital Signs 05/26/18 05/26/18 05/26/18 07:03 07:10 07:15 Temperature 97.7 F Pulse Rate 83 92 H 81 Respiratory 12 14 21 Rate Blood Pressure 119/66 107/64 Blood Pressure 119/66 [Left] O2 Sat by Pulse 100 100 99 Oximetry 05/26/18 05/26/18 05/26/18 07:30 07:38 07:45 Temperature Pulse Rate 84 92 H Respiratory 29 H 14 15 Rate Blood Pressure 103/73 112/77 Blood Pressure [Left] O2 Sat by Pulse 100 100 97 Oximetry ED Medical Decision Making - Lab Data Result diagrams: 05/26/18 07:24 05/26/18 07:24 Laboratory Results - last 24 hr 05/26/18 05/26/18 05/26/18 07:24 07:24 10:05 WBC 11.3 H RBC 4.20 Hgb 13.5 Hct 38.4 MCV 92 MCH 32 MCHC 35 H RDW 12.7 L Plt Count 324 Lymph % (Auto) 10.1 L Desha % (Auto) 4.3 Eos % (Auto) 0.0 Baso % (Auto) 0.2 Lymph # 1.1 L Desha # 0.5 Eos # 0.0 Baso # 0.0 Seg Neutrophils % 85.4 H Seg Neutrophils # 9.6 H Sodium 137 Potassium 3.9 Chloride 101.8 Carbon Dioxide 21 L Anion Gap 18 BUN 14 Creatinine 0.7 Estimated GFR > 60 BUN/Creatinine Ratio 20 Glucose 164 H Calcium 9.3 Magnesium 1.80 Total Bilirubin 1.40 H Direct Bilirubin 0.3 H Indirect Bilirubin 1.1 AST 21 ALT 16 Alkaline Phosphatase 68 Total Protein 7.7 Albumin 4.5 Albumin/Globulin Ratio 1.4 Lipase 15 Urine Color Michelle Urine Turbidity Slightly-cloudy Urine pH 5.0 Ur Specific Jonancy 1.036 H Urine Protein 100 mg/dl Urine Glucose (UA) Neg Urine Ketones 80 Urine Blood Neg Urine Nitrite Neg Urine Bilirubin Neg Urine Urobilinogen 2.0 Ur Leukocyte Esterase Tr Urine WBC (Auto) 3.0 Urine RBC (Auto) 4.0 U Epithel Cells (Auto) 17.0 H Urine Mucus 3+ Urine HCG, Qual Negative Critical care attestation.: If time is entered above; I have spent that time in minutes in the direct care of this critically ill patient, excluding procedure time. ED Disposition Clinical Impression: Volume depletion, Hyperglycemia, unspecified, Gastroparesis Nausea & vomiting Qualifiers: Vomiting type: unspecified Vomiting Intractability: non-intractable Qualified Code(s): R11.2 - Nausea with vomiting, unspecified Gastritis Qualifiers: Gastritis type: unspecified gastritis Chronicity: chronic Gastritis bleeding: without bleeding Qualified Code(s): K29.50 - Unspecified chronic gastritis without bleeding Disposition: DC- TO HOME OR SELFCARE Is pt being admited?: No Does the pt Need Aspirin: No Condition: Stable Instructions: Acute Nausea and Vomiting (ED) Additional Instructions: Follow-up with GI physician and medical clinic. Your blood sugar was a bit high and I will need follow-up. Return any acute change or problem. Clear fluids and advance as tolerated. Avoid marijuana alcohol and any stomach irritant. Prescriptions: Lansoprazole [Prevacid] 15 mg PO BID #30 cap Ondansetron [Zofran Odt] 4 mg PO Q4HR PRN #14 tab.rapdis PRN Reason: Nausea Referrals: [facility] [Provider Group] - 3-5 Days COOK STA NAHUM LIZ MD [Primary Care Provider] - 2-3 Days Time of Disposition: 10:40
[2018-05-26] MEDS ORDERED: NACL 0.9% 1000 ML 1,000 ML IV ONE ×2 (07:14→09:45)
[2018-05-26] MEDS ORDERED: PROTONIX IV ONE (07:14)
[2018-05-26] MEDS ORDERED: REGLAN IV ONE (07:14)
[2018-05-26 07:37] LABS: Basophils % (Auto) 0.2 % (0.0-1.8); Hematocrit 38.4 % (30.3-42.9); Hemoglobin 13.5 gm/dl (10.1-14.3); Lymphocytes # (Auto) 1.1 K/mm3 (1.2-5.4); Lymphocytes % (Auto) 10.1 % (13.4-35.0); Mean Corpuscular HGB Conc 35 % (30-34); Mean Corpuscular Volume 92 fl (79-97); Monocytes # (Auto) 0.5 K/mm3 (0.0-0.8); Monocytes % (Auto) 4.3 % (0.0-7.3); Platelet Count 324 K/mm3 (140-440); Red Cell Distribution Width 12.7 % (13.2-15.2)
[2018-05-26 07:52] LABS: Alanine Aminotransferase 16 units/L (7-56); Albumin 4.5 g/dL (3.9-5); BUN/Creatinine Ratio 20; Bilirubin,Direct 0.3 mg/dL (0-0.2); Blood Urea Nitrogen 14 mg/dL (7-17); Calcium 9.3 mg/dL (8.4-10.2); Hemolysis Index 9
[2018-05-26 10:21] LABS: Bilirubin,Urine NEG (Negative); Blood,Urine NEG (Negative); Color,Urine Amber (Yellow); Mucus,Urine 3+ /HPF
[2018-05-26 10:29] LABS: HCG Qualitative,Urine Negative (Negative)
[2018-05-26 10:40] LABS: Amphetamine Screen,Urine PRESUMPTIVE NEGATIVE; Benzodiazepines Screen,Urine PRESUMPTIVE NEGATIVE; Cocaine Screen,Urine PRESUMPTIVE NEGATIVE; Methadone Screen,Urine PRESUMPTIVE NEGATIVE; Opiate Screen,Urine PRESUMPTIVE NEGATIVE
[2018-05-26] MEDS ORDERED: DILAUDID IV ONE (10:49)
[2018-05-26] MEDS ORDERED: ATIVAN IV ONE (10:49)
[2018-05-26] MEDS ORDERED: BENADRYL IV ONE (10:50)
[2018-05-26 11:11] VITALS: BP 108/57
[2018-05-26 11:16] LABS: Cannabinoid Screen,Urine PRESUMPTIVE POSITIVE
== END 2018-05-26 12:16 | disposition home or self-care (01) ==
LOC: ED 05:11
DX: K29.70 Gastritis, unspecified, without bleeding (principal); K31.84 Gastroparesis; F12.10 Cannabis abuse, uncomplicated; R73.9 Hyperglycemia, unspecified; E86.9 Volume depletion, unspecified
CPT/HCPCS: 36415; 80048; 80076; 80307; 81001; 81025; 83690; 83735; 85025; 96361; 96374; 96375; 99284; C9113; J1170; J1200; J2060; J2765; J7030

== ENCOUNTER 2020-10-30 14:40 | Emergency (ER) | payer SELFPAY ==
[2020-10-30 16:28] LABS: Basophils % (Auto) 0.4 % (0.0-1.8); Hematocrit 39.6 % (30.3-42.9); Hemoglobin 13.7 gm/dl (10.1-14.3); Lymphocytes # (Auto) 1.2 K/mm3 (1.2-5.4); Mean Corpuscular HGB Conc 35 % (30-34); Mean Corpuscular Volume 91 fl (79-97); Monocytes # (Auto) 0.4 K/mm3 (0.0-0.8); Monocytes % (Auto) 10.6 % (0.0-7.3); Red Blood Count 4.37 M/mm3 (3.65-5.03); Red Cell Distribution Width 12.7 % (13.2-15.2)
[2020-10-30 17:01] LABS: Alanine Aminotransferase 28 units/L (7-56); Albumin 4.5 g/dL (3.9-5); Blood Urea Nitrogen 13 mg/dL (7-17); Calcium 9.1 mg/dL (8.4-10.2); Hemolysis Index 5
[2020-10-30 17:03] LABS: BUN/Creatinine Ratio 19
[2020-10-30 18:05] LABS: Platelet Count 279 K/mm3 (140-440)
[2020-10-30] MEDS ORDERED: MORPHINE 4 MG/1 ML INJ IV ONE (18:51)
[2020-10-30] MEDS ORDERED: SODIUM CHLORIDE 0.9% 1000 ML 1,000 ML IV ONE (18:51)
[2020-10-30] MEDS ORDERED: POTASSIUM CHLORIDE ER 20 MEQ TAB PO ONE ×2 (18:51→21:52)
[2020-10-30] MEDS ORDERED: ONDANSETRON 4 MG/2 ML INJ IV ONE (18:51)
--- NOTE | 2020-10-30 18:54 | Emergency Department Report ---
ED Abdominal Pain HPI - General Chief Complaint: Abdominal Pain Stated Complaint: VOMITING/AB PAIN Time Seen by Provider: 10/30/20 18:50 Source: patient Mode of arrival: Ambulatory Limitations: No Limitations - History of Present Illness Initial Comments: Patient is a 30-year-old female presents emergency room complaints of nausea and vomiting that began 3 days ago. She states that she has not been able to tolerate p.o. intake. She has associated left lower quadrant abdominal pain. She endorses alcohol use and states that she last drink a few days ago. She denies any diarrhea, fever, urinary symptoms, hematochezia, melena, hematemesis. Past medical history of gastritis. No allergies to medications. She denies any past abdominal surgical history. Severity scale (0 -10): 10 - Related Data Previous Rx's Medication Instructions Recorded Last Taken Type Lansoprazole [Prevacid] 15 mg PO BID #30 cap 05/26/18 Unknown Rx Ondansetron [Zofran Odt] 4 mg PO Q4HR PRN #14 tab.rapdis 05/26/18 Unknown Rx traMADoL [Ultram] 50 mg PO Q6HR PRN #14 tablet 05/26/18 Unknown Rx Ciprofloxacin HCl [Ciprofloxacin 500 mg PO BID 10 Days #40 tablet 10/30/20 Unknown Rx TAB] Promethazine [Phenergan] 25 mg PO Q8HR PRN #10 tab 10/30/20 Unknown Rx metroNIDAZOLE [Flagyl] 500 mg PO BID 10 Days #20 tab 10/30/20 Unknown Rx traMADoL [Ultram 50 MG tab] 50 mg PO Q6HR PRN #12 tablet 10/30/20 Unknown Rx Allergies Allergy/AdvReac Type Severity Reaction Status Date / Time No Known Allergies Allergy Verified 10/30/20 15:20 ED Review of Systems ROS: Stated complaint: VOMITING/AB PAIN Other details as noted in HPI Comment: All other systems reviewed and negative ED Past Medical Hx - Past Medical History Additional medical history: Cannabinoid hyperemesis syndrome - Social History Smoking Status: Never Smoker Substance Use Type: Alcohol, Marijuana - Medications Home Medications: Home Medications Medication Instructions Recorded Confirmed Last Taken Type Lansoprazole [Prevacid] 15 mg PO BID #30 cap 05/26/18 Unknown Rx Ondansetron [Zofran Odt] 4 mg PO Q4HR PRN #14 tab.rapdis 05/26/18 Unknown Rx traMADoL [Ultram] 50 mg PO Q6HR PRN #14 tablet 05/26/18 Unknown Rx Ciprofloxacin HCl [Ciprofloxacin 500 mg PO BID 10 Days #40 tablet 10/30/20 Unknown Rx TAB] Promethazine [Phenergan] 25 mg PO Q8HR PRN #10 tab 10/30/20 Unknown Rx metroNIDAZOLE [Flagyl] 500 mg PO BID 10 Days #20 tab 10/30/20 Unknown Rx traMADoL [Ultram 50 MG tab] 50 mg PO Q6HR PRN #12 tablet 10/30/20 Unknown Rx ED Physical Exam - General Limitations: No Limitations General appearance: alert, in no apparent distress - Head Head exam: Present: atraumatic, normocephalic - Eye Eye exam: Present: normal appearance - ENT ENT exam: Present: mucous membranes moist - Respiratory Respiratory exam: Present: normal lung sounds bilaterally. Absent: respiratory distress, wheezes, rales, rhonchi, stridor, chest wall tenderness, accessory muscle use, decreased breath sounds, prolonged expiratory - Cardiovascular Cardiovascular Exam: Present: regular rate, normal rhythm, normal heart sounds. Absent: systolic murmur, diastolic murmur, rubs, gallop - GI/Abdominal GI/Abdominal exam: Present: soft, tenderness (LLQ), normal bowel sounds. Absent: distended, guarding, rebound, rigid - Neurological Exam Neurological exam: Present: alert, oriented X3 - Psychiatric Psychiatric exam: Present: normal affect, normal mood - Skin Skin exam: Present: warm, dry, intact ED Course Vital Signs 10/30/20 15:19 Temperature 98.7 F Pulse Rate 100 H Respiratory 30 H Rate Blood Pressure 138/79 [Left] O2 Sat by Pulse 100 Oximetry ED Medical Decision Making - Lab Data Result diagrams: 10/30/20 16:12 10/30/20 16:12 Lab Results 10/30/20 10/30/20 10/30/20 Range/Units 16:12 16:12 16:55 WBC 4.0 L (4.5-11.0) K/mm3 RBC 4.37 (3.65-5.03) M/mm3 Hgb 13.7 (10.1-14.3) gm/dl Hct 39.6 (30.3-42.9) % MCV 91 (79-97) fl MCH 31 (28-32) pg MCHC 35 H (30-34) % RDW 12.7 L (13.2-15.2) % Plt Count 279 (140-440) K/mm3 Lymph % (Auto) 29.0 (13.4-35.0) % [place] % (Auto) 10.6 H (0.0-7.3) % Eos % (Auto) 0.0 (0.0-4.3) % Baso % (Auto) 0.4 (0.0-1.8) % Lymph # (Auto) 1.2 (1.2-5.4) K/mm3 [place] # (Auto) 0.4 (0.0-0.8) K/mm3 Eos # (Auto) 0.0 (0.0-0.4) K/mm3 Baso # (Auto) 0.0 (0.0-0.1) K/mm3 Seg Neutrophils % 60.0 (40.0-70.0) % Seg Neutrophils # 2.4 (1.8-7.7) K/mm3 Sodium 136 L (137-145) mmol/L Potassium 3.3 L (3.6-5.0) mmol/L Chloride 98.1 (98-107) mmol/L Carbon Dioxide 23 (22-30) mmol/L Anion Gap 18 mmol/L BUN 13 (7-17) mg/dL Creatinine 0.7 (0.6-1.2) mg/dL Estimated GFR > 60 ml/min BUN/Creatinine Ratio 19 % Glucose 120 H (65-100) mg/dL Calcium 9.1 (8.4-10.2) mg/dL Total Bilirubin 0.40 (0.1-1.2) mg/dL AST 40 (5-40) units/L ALT 28 (7-56) units/L Alkaline Phosphatase 78 (35-129) units/L Total Protein 7.9 (6.3-8.2) g/dL Albumin 4.5 (3.9-5) g/dL Albumin/Globulin Ratio 1.3 % HCG, Qual Negative (Negative) Urine Color (Yellow) Urine Turbidity (Clear) Urine pH (5.0-7.0) Ur Specific [place] (1.003-1.030) Urine Protein (Negative) mg/dL Urine Glucose (UA) (Negative) mg/dL Urine Ketones (Negative) mg/dL Urine Blood (Negative) Urine Nitrite (Negative) Urine Bilirubin (Negative) Urine Ictotest (Negative) Urine Urobilinogen (<2.0) mg/dL Ur Leukocyte Esterase (Negative) Urine WBC (Auto) (0.0-6.0) /HPF Urine RBC (Auto) (0.0-6.0) /HPF U Epithel Cells (Auto) (0-13.0) /HPF Urine Bacteria (Auto) (Negative) /HPF Urine Mucus /HPF 10/30/20 Range/Units Unknown WBC (4.5-11.0) K/mm3 RBC (3.65-5.03) M/mm3 Hgb (10.1-14.3) gm/dl Hct (30.3-42.9) % MCV (79-97) fl MCH (28-32) pg MCHC (30-34) % RDW (13.2-15.2) % Plt Count (140-440) K/mm3 Lymph % (Auto) (13.4-35.0) % [place] % (Auto) (0.0-7.3) % Eos % (Auto) (0.0-4.3) % Baso % (Auto) (0.0-1.8) % Lymph # (Auto) (1.2-5.4) K/mm3 [place] # (Auto) (0.0-0.8) K/mm3 Eos # (Auto) (0.0-0.4) K/mm3 Baso # (Auto) (0.0-0.1) K/mm3 Seg Neutrophils % (40.0-70.0) % Seg Neutrophils # (1.8-7.7) K/mm3 Sodium (137-145) mmol/L Potassium (3.6-5.0) mmol/L Chloride (98-107) mmol/L Carbon Dioxide (22-30) mmol/L Anion Gap mmol/L BUN (7-17) mg/dL Creatinine (0.6-1.2) mg/dL Estimated GFR ml/min BUN/Creatinine Ratio % Glucose (65-100) mg/dL Calcium (8.4-10.2) mg/dL Total Bilirubin (0.1-1.2) mg/dL AST (5-40) units/L ALT (7-56) units/L Alkaline Phosphatase (35-129) units/L Total Protein (6.3-8.2) g/dL Albumin (3.9-5) g/dL Albumin/Globulin Ratio % HCG, Qual (Negative) Urine Color Michelle (Yellow) Urine Turbidity Slightly-cloudy (Clear) Urine pH 5.0 (5.0-7.0) Ur Specific [place] 1.032 H (1.003-1.030) Urine Protein 100 mg/dl (Negative) mg/dL Urine Glucose (UA) Neg (Negative) mg/dL Urine Ketones 80 (Negative) mg/dL Urine Blood Sm (Negative) Urine Nitrite Neg (Negative) Urine Bilirubin Sm (Negative) Urine Ictotest Negative (Negative) Urine Urobilinogen 4.0 (<2.0) mg/dL Ur Leukocyte Esterase Neg (Negative) Urine WBC (Auto) 1.0 (0.0-6.0) /HPF Urine RBC (Auto) 8.0 (0.0-6.0) /HPF U Epithel Cells (Auto) 16.0 H (0-13.0) /HPF Urine Bacteria (Auto) 1+ (Negative) /HPF Urine Mucus 3+ /HPF Vital Signs (72 hours) 10/30/20 10/30/20 15:19 22:13 Temperature 98.7 F 97.7 F Pulse Rate 100 H 70 Respiratory 30 H 18 Rate Blood Pressure 138/79 [Left] Blood Pressure 108/77 [Right] O2 Sat by Pulse 100 97 Oximetry - Radiology Data Radiology results: report reviewed Ordering Physician: MARCI DORSEY Date of Service: 10/30/20 Procedure(s): CT abdomen pelvis w con Accession Number(s): [id number] cc: MARCI DORSEY CT abdomen pelvis w con INDICATION / CLINICAL INFORMATION: LLQ abd pain, n/v. TECHNIQUE: Axial CT images were obtained through the abdomen and pelvis after 100 cc of Omnipaque [address] scans at this location are performed using CT dose reduction for ALARA by means of automated exposure control. COMPARISON: None available. FINDINGS: LOWER CHEST: No significant abnormality LIVER: No significant abnormality GALLBLADDER/BILIARY TREE: Layering sludge within the gallbladder. No evidence of cholecystitis. No biliary dilatation. PANCREAS: No significant abnormality SPLEEN: No significant abnormality ADRENALS: No significant abnormality KIDNEYS / URETER: No significant abnormality URINARY BLADDER: No significant abnormality REPRODUCTIVE ORGANS: Trace fluid in the pelvis is likely physiologic. There is a 1.6 cm crenated structure in the left adnexa, most compatible with corpus luteum cyst. Physiologic endometrial fluid/thickening noted. STOMACH / BOWEL: Fluid-filled nondilated small bowel within the central and left abdomen. No evidence of bowel obstruction. There is mild mural thickening seen diffusely throughout the colon. The appendix is normal in caliber. LYMPH NODES: No significant adenopathy. VASCULATURE: No significant abnormality. OTHER: No free air, free fluid, or focal fluid collection is identified. SKELETAL SYSTEM: No acute osseous findings. IMPRESSION: 1. Scattered fluid-filled nondilated small bowel within the abdomen with mild diffuse mural thickening of the colon. Findings are most consistent with infectious or inflammatory enterocolitis. 2. Endometrial fluid/thickening and trace free fluid in the pelvis is likely physiologic. There is a 1.6 cm corpus luteum cyst. 3. Other chronic and incidental findings as above. Signer Name: Federica Greenberg MD Signed: 10/30/2020 9:34 PM Workstation Name: [id number] Transcribed By: ANTONIO Dictated By: FEDERICA GREENBERG MD Electronically Authenticated By: FEDERICA GREENBERG MD Signed Date/Time: 10/30/202133 DD/ 30 TD/TT: - Medical Decision Making Patient is a 30-year-old female presents emergency room complaints of nausea and vomiting that began 3 days ago. She states that she has not been able to tolerate p.o. intake. She has associated left lower quadrant abdominal pain. She endorses alcohol use and states that she last drink a few days ago. She denies any diarrhea, fever, urinary symptoms, hematochezia, melena, hematemesis. Past medical history of gastritis. No allergies to medications. She denies any past abdominal surgical history. Labs with hypokalemia and mild dehydration. CT abdomen pelvis with IV contrast: 1. Scattered fluid-filled nondilated small bowel within the abdomen with mild diffuse mural thickening of the colon. Findings are most consistent with infectious or inflammatory enterocolitis. 2. Endometrial fluid/thickening and trace free fluid in the pelvis is likely physiologic. There is a 1.6 cm corpus luteum cyst. 3. Other chronic and incidental findings as above. Patient given medications in the emergency room with improvement of her symptoms. She was feeling much better and ready to go home. She was able to tolerate p.o. intake. Patient given prescription for medications. Discussed all results with patient and discussed the importance of primary care and GI follow-up. Advised patient Please take medication as prescribed. Increase your fluid intake. Eat a bland liquid diet and slowly advance your diet as tolerated. Follow-up with a primary care doctor. Follow-up with a GI doctor. Return to emergency room for any new or worsening symptoms. Critical care attestation.: If time is entered above; I have spent that time in minutes in the direct care of this critically ill patient, excluding procedure time. ED Disposition Clinical Impression: Enterocolitis, Hypokalemia Abdominal pain Qualifiers: Abdominal location: left lower quadrant Qualified Code(s): R10.32 - Left lower quadrant pain Nausea & vomiting Qualifiers: Vomiting type: unspecified Vomiting Intractability: non-intractable Qualified Code(s): R11.2 - Nausea with vomiting, unspecified Ovarian cyst Qualifiers: Laterality: left Qualified Code(s): N83.202 - Unspecified ovarian cyst, left side Disposition: 01 HOME / SELF CARE / HOMELESS Is pt being admited?: No Does the pt Need Aspirin: No Condition: Stable Instructions: Ovarian Cyst, Colitis, Abdominal Pain (ED) Additional Instructions: Please take medication as prescribed. Increase your fluid intake. Eat a bland liquid diet and slowly advance your diet as tolerated. Follow-up with a primary care doctor. Follow-up with a GI doctor. Return to emergency room for any new or worsening symptoms. Prescriptions: Ciprofloxacin HCl [Ciprofloxacin TAB] 500 mg PO BID 10 Days #40 tablet metroNIDAZOLE [Flagyl] 500 mg PO BID 10 Days #20 tab Promethazine [Phenergan] 25 mg PO Q8HR PRN #10 tab PRN Reason: nausea vomiting traMADoL [Ultram 50 MG tab] 50 mg PO Q6HR PRN #12 tablet PRN Reason: Pain , Severe (7-10) Referrals: [facility] [Provider Group] - 3-5 Days your, primary care doctor [Other] - 3-5 Days Time of Disposition: 21:44 Print Language: MONGOLIAN
[2020-10-30 19:31] LABS: Bacteria,Urine 1+ /HPF (Negative); Bilirubin,Urine SM (Negative); Blood,Urine SM (Negative); Color,Urine Amber (Yellow); Mucus,Urine 3+ /HPF
[2020-10-30 19:48] LABS: Ictotest,Urine Negative (Negative)
--- NOTE | 2020-10-30 21:38 | Cat Scan Report ---
CT abdomen pelvis w con INDICATION / CLINICAL INFORMATION: LLQ abd pain, n/v. TECHNIQUE: Axial CT images were obtained through the abdomen and pelvis after 100 cc of Omnipaque [address] scans at this location are performed using CT dose reduction for ALARA by means of automated exposure control. COMPARISON: None available. FINDINGS: LOWER CHEST: No significant abnormality LIVER: No significant abnormality GALLBLADDER/BILIARY TREE: Layering sludge within the gallbladder. No evidence of cholecystitis. No bi liary dilatation. PANCREAS: No significant abnormality SPLEEN: No significant abnormality ADRENALS: No significant abnormality KIDNEYS / URETER: No significant abnormality URINARY BLADDER: No significant abnormality REPRODUCTIVE ORGANS: Trace fluid in the pelvis is likely physiologic. There is a 1.6 cm crenated stru cture in the left adnexa, most compatible with corpus luteum cyst. Physiologic endometrial fluid/thic kening noted. STOMACH / BOWEL: Fluid-filled nondilated small bowel within the central and left abdomen. No evidence of bowel obstruction. There is mild mural thickening seen diffusely throughout the colon. The append ix is normal in caliber. LYMPH NODES: No significant adenopathy. VASCULATURE: No significant abnormality. OTHER: No free air, free fluid, or focal fluid collection is identified. SKELETAL SYSTEM: No acute osseous findings. IMPRESSION: 1. Scattered fluid-filled nondilated small bowel within the abdomen with mild diffuse mural thickenin g of the colon. Findings are most consistent with infectious or inflammatory enterocolitis. 2. Endometrial fluid/thickening and trace free fluid in the pelvis is likely physiologic. There is a 1.6 cm corpus luteum cyst. 3. Other chronic and incidental findings as above. Signer Name: Akbar Licona MD Signed: 10/30/2020 9:34 PM Workstation Name: [id number]
[2020-10-30] MEDS ORDERED: HYDROmorphone 1 MG/1 ML INJ IV ONE (21:44)
[2020-10-30 22:18] VITALS: BP 108/77
== END 2020-10-30 22:18 | disposition home or self-care (01) ==
LOC: ED 14:40
DX: N83.202 Unspecified ovarian cyst, left side (principal); R11.2 Nausea with vomiting, unspecified; R10.32 Left lower quadrant pain; E87.6 Hypokalemia; K52.9 Noninfective gastroenteritis and colitis, unspecified; F12.90 Cannabis use, unspecified, uncomplicated; Z79.899 Other long term (current) drug therapy
CPT/HCPCS: 36415; 74177; 80053; 81001; 84703; 85025; 96361; 96374; 96375; 99284; J1170; J2270; J2405; J7030; Q9967